=== PATIENT | female | born 1945 | race Two or more races ===

== ENCOUNTER 2024-02-04 21:32 | Emergency (ER) | payer OTHER, MEDICAID ==
[~2024-02-04] VITALS: Ht 149.9 cm; Wt 167.0 kg
[2024-02-04 21:39] VITALS: BP 153/71; RESP 16; O2SAT 98
[2024-02-04 21:44] VITALS: PULSE 85
[2024-02-04 22:25] LABS: Basophils # (auto) 0 10 ^3/uL (0-0.2); Basophils % (auto) 0.4 % (0.0-2.0); Eosinophils # (auto) 0.1 10 ^3/uL (0-0.8); Eosinophils % (auto) 1.2 % (0.0-7.0); Hematocrit 42.5 % (36.0-46.0); Hemoglobin 14.2 g/dL (12.2-16.2); Lymphocytes % (auto) 29.3 % (10.0-50.0); Mean Corpuscular Hemoglobin 31.2 pg (28.0-32.0); Mean Corpuscular Hgb Conc. 33.3 g/dL (32.0-36.0); Mean Corpuscular Volume 93.5 fL (80.0-100.0); Monocytes # (auto) 0.6 10 ^3/uL (0-1.3); Monocytes % (auto) 5.5 % (0.0-12.0); Neutrophils # (auto) 6.4 10 ^3/uL (1.6-8.6); Neutrophils % (auto) 63.6 % (37.0-80.0); Red Blood Cells 4.55 10^6/uL (4.0-5.20); Red Cell Distribution Width 14.4 % (11.8-14.3); White Blood Cell 10.1 10^3/uL (4.4-10.8)
[2024-02-04 22:32] LABS: Chloride 109 mmol/L (98-107); Sodium 140 mmol/L (136-145)
[2024-02-04 22:33] LABS: Anion Gap 6 (5-15); Calcium 9.2 mg/dL (8.7-10.4); Carbon Dioxide 25 mmol/L (20-30)
[2024-02-04 22:38] LABS: BUN/Creatinine Ratio 26.5 (10.0-20.0); Blood Urea Nitrogen 13 mg/dL (9-23); Glucose 119 mg/dL (74-106)
[2024-02-05] MEDS: CYCLOBENZAPRINE HCL 10 MG TAB PO ONE (02:14)
[2024-02-05] MEDS ORDERED: ACETAMINOPHEN 325 MG TAB PO ONE (02:45)
[2024-02-05] MEDS ORDERED: LIDOCAINE 5% TOPICAL PATCH TOP ONE (02:45)
[2024-02-05] MEDS ORDERED: KETOROLAC TROMETH 30 MG/ML 1ML VIAL IM ONE (02:45)
[2024-02-05] MEDS ORDERED: OXYC1CAP9 PO (02:50)
[2024-02-05] MEDS ORDERED: CYCL-839 PO (02:50)
== END 2024-02-05 03:58 | disposition home or self-care (01) ==
LOC: EDBD 21:32 → ER 21:32
DX: M54.12 Radiculopathy, cervical region (principal); E11.9 Type 2 diabetes mellitus without complications; Z79.899 Other long term (current) drug therapy
CPT/HCPCS: 36415; 80048; 84484; 85025; 93005